=== PATIENT | male | born 1985 | race Hispanic/Latino ===

== ENCOUNTER 2021-11-02 09:54 | Emergency (ER) | payer OTHER ==
[~2021-11-02] VITALS: Ht 170.2 cm; Wt 86.6 kg
[2021-11-02] MEDS ORDERED: CEFTRIAXONE 1G VIAL IVP ONE (12:00)
[2021-11-02] MEDS ORDERED: DOXYCYCLINE HYCLATE 100 MG TABLET PO SCH (12:00)
[2021-11-02] MEDS ORDERED: IBUP-2070 PO (12:48)
[2021-11-02] MEDS ORDERED: DOXY-336 PO (12:48)
[2021-11-02 13:29] VITALS: BP 129/86
== END 2021-11-02 13:31 | disposition home or self-care (01) ==
LOC: EDH 09:54
DX: N45.1 Epididymitis (principal); Z98.890 Other specified postprocedural states
CPT/HCPCS: 76870; 87486; 87797; 96374; 99284; J0696